=== PATIENT | male | born 1985 | race Caucasian/White ===

== ENCOUNTER 2025-09-05 09:24 | Outpatient (CLI) | payer OTHER, SELFPAY ==
--- OUTSIDE RECORDS SUMMARY | 2025-09-05 09:41 | XMS_ITS | Clinical Summary ---
Author Organization [facility] Address [address] [place] [id number] Care Team Providers Care Lead Qa Analyst Name Role Phone Unavailable Primary Care Provider Unavailabl e Social History Tobacco Use Types Packs/Day Years Used Date Smoking Tobacco: Never Assessed Sex and Gender Information Value Date Recorded Sex Assigned at Not on file Legal Sex Male 1:01 PM [employer] Gender Identity Not on file Sexual Orientation Not on file Plan of Treatment Health Maintenance Due Date Last Done Comments Hepatitis C Virus (HCV) Screening 1984 Hepatitis B Immunization (1 of 3 - 19+ 3-dose series) 2003 Human Papillomavirus (HPV) Immunization (1 - 3-dose SCDM series) 2011 Influenza Immunization (#1) 2025 SARS-COV-2 Immunization ( season) 2025 01/10/2021, 12/15/2020 Respiratory Syncytial Virus (RSV) Immunization (Adult) (1 - 1-dose 75+ series) 2059 DTaP/Tdap/Td Immunization Discontinued 09/09/2012 TdaP Immunization Completed 09/09/2012 Meningococcal Immunization (ACWY) Aged Out No longer eligible based on patient's age to complete this topic Pneumococcal Immunization Combined Aged Out No longer eligible based on patient's age to complete this topic Rotavirus Immunization Aged Out No lo nger eligible based on patient's age to complete this topic
== END 2025-09-05 09:25 | disposition home or self-care (01) ==
LOC: ANHAUDIO 09:24
PROVIDERS: PCP Student in an Organized Health Care Education/Training Program; Visit Provider Otolaryngology
DX: H93.8X2 Other specified disorders of left ear (principal); R42 Dizziness and giddiness
CPT/HCPCS: 92557; 92567